=== PATIENT | male | born 1985 | race Caucasian/White ===

== ENCOUNTER 2024-04-02 23:44 | Emergency (ER) | payer BC ==
[~2024-04-02] VITALS: Ht 160 cm; Wt 75.0 kg
[2024-04-02 23:46] VITALS: O2SAT 95
[2024-04-02] MEDS ORDERED: KETOROLAC 30MG/ML VIAL IV STA (23:59)
[2024-04-03] MEDS ORDERED: SODIUM CHLORIDE 0.9% 1,000 ML IV ONE
[2024-04-03 00:16] VITALS: BP 140/97; PULSE 101; RESP 18; TEMP 98.2
== END 2024-04-03 03:12 | disposition home or self-care (01) ==
LOC: ER 23:44
DX: R10.84 Generalized abdominal pain (principal); Z87.442 Personal history of urinary calculi
CPT/HCPCS: 99283; J7030